=== PATIENT | male | born 1995 | race Hispanic/Latino ===

== ENCOUNTER 2022-09-29 11:28 | Emergency (ER) | payer BC, SELFPAY ==
--- NOTE | ~2022-09-29 | CT_ITS ---
Non-contrast Head CT History: Left arm paresthesia Technique: Axial non-contrast imaging of the brain was performed. Dose reduction technique was used on this scan by utilizing automated exposure control and iterative reconstruction technique. The dose -length product (DLP) was 605.33 mGy-cm. Findings: There is no evidence of intracranial hemorrhage, mass lesion, or acute infarct. Brain par enchyma appears normal. The ventricles and subarachnoid spaces are normal in size. The calvarium ap pears normal. The visualized paranasal sinuses and mastoid air cells are clear. Impression: No significant abnormality seen. Reviewed, dictated and finalized at location . Impression: No significant abnormality seen.
--- NOTE | ~2022-09-29 | XR_ITS ---
EXAMINATION: XR chest 2V DATE: 09/29/2022 12:12 INDICATION: Chest pain. TECHNIQUE: Frontal and lateral views of the chest were obtained. COMPARISON: None. FINDINGS: The chest demonstrates clear lungs without pneumonia, pleural effusion, or pneumothorax. Th e heart size is normal. IMPRESSION: 1. No acute cardiopulmonary disease. Reviewed, dictated and finalized at location A.
[2022-09-29 11:30] VITALS: BP 156/89; PULSE 89; RESP 18; TEMP 36.4; O2SAT 100
[2022-09-29 11:39] VITALS: BP 144/99; PULSE 82; RESP 14; O2SAT 100
--- NOTE | 2022-09-29 11:41 | ECG_ITS ---
Measurements Intervals [place] Rate: 81 P: 70 PA: 141 QRS: 71 QRSD: 101 T: 17 QT: 360 QTc: 420 Interpretive Statements SINUS RHYTHM POSSIBLE RIGHT VENTRICULAR CONDUCTION DELAY [RSR (QR) IN V1/V2] NO PREVIOUS ECG AVAILABLE FOR COMPARISON Electronically Signed On 09-29-2022 13:53:50 CDT by Neli Martinez M.D.
[2022-09-29 11:48] VITALS: O2SAT 100
--- NOTE | 2022-09-29 11:53 | ED.CHESTPAIN ---
HPI - Chest Pain General Chief Complaint: Chest Pain Stated Complaint: chest pain, left arm numbness Time Seen by Provider: 09/29/22 11:45 Source: patient Mode of arrival: ambulatory Limitations: no limitations History of Present Illness HPI narrative: This is a 27-year-old male that presents to the emergency department for an episode of chest pain today. Reports a sharp, substernal chest pain that was worse with deep breathing. This was relieved without intervention. Reports he had some associated left arm paresthesias. These are also now gone. Denies fever, cough, shortness of breath, lower extremity edema, or recent travel or surgery. Review of Systems Review of Systems: CONSTITUTIONAL: Denies fever CARDIOVASCULAR: Reports chest pain. Denies palpitations, or edema. RESPIRATORY: Denies cough or dyspnea. All systems reviewed & are unremarkable except as noted in HPI and below PMFSH Past Medical History Medical History (Updated 09/29/22 @ 15:12 by Autumn Mari PA-C) No active medical problems Social History Social History (Updated 09/29/22 @ 15:05 by Autumn Mari PA-C) Substance use: never Exam Narrative: GENERAL: Well-appearing, well-nourished, and in no acute distress. HEAD: Normocephalic, atraumatic. EYES: PERRLA and EOMI. ENT: Nares clear, no rhinorrhea or epistaxis. Mucous membranes moist. Oropharynx without tonsillar hypertrophy exudate or other lesions. Bilateral TMs pearly lee non-bulging NECK: Supple. No adenopathy or masses. CHEST: Clear to auscultation. No respiratory distress. No wheezes rales or rhonchi HEART: Regular rate and rhythm. No murmur heard. Normal peripheral pulses. EXTREMITIES: Normal range of motion. No edema. Strength equal in bilateral upper and lower extremities (5/5) SKIN: Warm, dry, no rash. NEURO: No focal deficits. Alert and oriented x3. Cranial nerves II through XII grossly intact PSYCH: Normal mood and affect Course Course Emergency Course: Patient and family updated on workup and agree with plan of care Vital Signs Vital signs: Vital Signs Temperature 97.6 F 09/29/22 11:30 Pulse Rate 89 09/29/22 11:30 Respiratory Rate 18 09/29/22 11:30 Blood Pressure 156/89 H 09/29/22 11:30 Pulse Oximetry 100 09/29/22 11:30 Oxygen Delivery Room Air 09/29/22 11:30 Temperature 97.6 F 09/29/22 11:30 Pulse Rate 77 09/29/22 13:45 Respiratory Rate 20 09/29/22 13:45 Blood Pressure 134/77 09/29/22 13:45 Pulse Oximetry 100 09/29/22 13:45 Oxygen Delivery Room Air 09/29/22 11:48 MDM - Chest Pain MDM Narrative Medical decision making narrative: Patient presents to the emergency department for an episode of chest pain today. His vitals are stable. He is neurologically intact. Reporting some associated left arm paresthesias which have resolved. CBC and metabolic panel without concerning findings. EKG without concerning changes and baseline and 3-hour troponin are negative. Chest x-ray without acute cardiopulmonary abnormality. CT scan of the brain is without acute findings. His heart score is 0. PERC negative. Patient and family updated on workup. He was instructed to have follow up with primary provider. He was given warnings to return to the ER Differential Diagnosis Differential diagnosis: Likely stable angina, unstable angina pectoris, atypical chest pain, costochondritis and chest pain Lab Data Attestation: I reviewed the patient's lab results. 09/29/22 11:52 09/29/22 11:52 Labs: Lab Results 09/29/22 09/29/22 Range/Units 11:52 14:24 WBC 7.5 (4.5-10.0) K/mm3 RBC 5.73 (4.6-6.20) M/mm3 Hgb 15.1 (14.0-18.0) g/dL Hct 47.8 (42.0-52.0) % MCV 83.4 (80-100) fl MCH 26.4 (26-34) pg MCHC 31.6 L (32-36) g/dl RDW 13.0 (11.5-14.5) % Plt Count 247 (150-375) k/mm3 MPV 9.5 (7.4-10.4) fl Immature Gran % (Auto) 0.3 (0-0.5) % Neut % (Auto) 70.8 (45.5-73.1
[2022-09-29 11:58] LABS: Basophils Percent Auto 0.4 % (0.2-1.2); Eosinophils Absolute Auto 0.1 K/mm3 (0-0.3); Eosinophils Percent Auto 0.7 % (0-4.4); Hematocrit 47.8 % (42.0-52.0); Hemoglobin 15.1 g/dL (14.0-18.0); Immature Granulocyte Absolute 0.02 K/mm3 (0.00-0.031); Immature Granulocyte Percent A 0.3 % (0-0.5); Lymphocytes Absolute Auto 1.69 K/mm3 (0.9-3.2); Lymphocytes Percent Auto 22.4 % (18.3-44.2); Mean Corpuscular HGB Conc 31.6 g/dl (32-36); Mean Corpuscular Hemoglobin 26.4 pg (26-34); Mean Corpuscular Volume 83.4 fl (80-100); Mean Platelet Volume 9.5 fl (7.4-10.4); Monocytes Absolute Auto 0.4 K/mm3 (0.1-0.6); Monocytes Percent Auto 5.4 % (2.6-8.5); Neutrophils Absolute Auto 5.3 K/mm3 (1.3-6.7); Neutrophils Percent Auto 70.8 % (45.5-73.1); Platelet Count Result 247 k/mm3 (150-375); Red Blood Count 5.73 M/mm3 (4.6-6.20); White Blood Count 7.5 K/mm3 (4.5-10.0)
[2022-09-29 12:08] LABS: Alanine Aminotransferase 29 U/L (6-50); Albumin Level 4.8 g/dL (3.5-5.1); Alkaline Phosphatase 58 U/L (38-126); Anion Gap 7 mmol/L (8-16); Aspartate Amino Transferase 29 U/L (17-59); Bilirubin,Total 0.7 mg/dL (0.2-1.3); Blood Urea Nitrogen 12 mg/dL (9-20); Calcium 9.3 mg/dL (8.4-10.2); Carbon Dioxide 27 mmol/L (22-30); Chloride 102 mmol/L (98-107); Estimated CRCL calculation 108 ml/min; Estimated Glomerular Filt Rate > 60; Glucose 114 mg/dL (65-110); Lipase 42 U/L (23-300); Potassium 3.4 mmol/L (3.4-5.0); Sodium 136 mmol/L (137-145)
[2022-09-29 12:12] LABS: INR 1.1; Prothrombin Time 14.2 Seconds (11.1-14.7)
[2022-09-29 12:13] LABS: Partial Thromboplastin Time 26.8 SECONDS (22.3-36.8)
[2022-09-29 12:17] VITALS: BP 138/73; PULSE 74; RESP 15; O2SAT 100
[2022-09-29 12:20] LABS: Troponin I < 0.012 ng/mL (0.000-0.034)
[2022-09-29 13:45] VITALS: BP 134/77; PULSE 77; RESP 20; O2SAT 100
[2022-09-29 14:53] LABS: Troponin I < 0.012 ng/mL (0.000-0.034)
[2022-09-29 15:18] VITALS: BP 140/73; PULSE 79; RESP 20; O2SAT 100
== END 2022-09-29 15:19 | disposition home or self-care (01) ==
PROVIDERS: Emergency Provider Physician Assistant
DX: R07.89 Other chest pain (principal)
CPT/HCPCS: 36415; 70450; 71046; 80053; 83690; 84484; 85025; 85610; 85730; 93005; 99284